=== PATIENT | female | born 1960 | race Caucasian/White ===

== ENCOUNTER 2022-06-08 08:00 | Outpatient (CLI) | payer OTHER ==
--- NOTE | 2022-06-08 17:36 | XRAY Report ---
PROCEDURE: Ankle 3 View LT INDICATIONS: LEFT ANKLE PAIN TECHNIQUE: 3 views of the ankle were acquired. COMPARISON: X-ray ankle 05/23/2022 FINDINGS: Bones: Comminuted distal fibular fracture is present. There is stable appearance of the ankle mortise . Alignment is stable. No suspicious bony lesions. Soft tissues: No tibiotalar joint effusion. Achilles tendon appears normal. IMPRESSION: Stable alignment of comminuted distal fibular fracture. Reviewed by: Azucena Fox MD on 06/08/2022 5:35 PM PST Approved by: Azucena Fox MD on 06/08/2022 5:35 PM PST Station ID: [id number]
== END 2022-06-08 23:59 | disposition home or self-care (01) ==
LOC: DI.WOS 08:00
PROVIDERS: ATTEND Physician Assistant Surgical
DX: S82.832D Other fracture of upper and lower end of left fibula, subsequent encounter for closed fracture with routine healing (principal)

== ENCOUNTER 2023-08-17 11:22 | Outpatient (CLI) | payer OTHER ==
[2023-08-17 11:50] LABS: BILIRUBIN,URINE NEGATIVE (NEGATIVE); GLUCOSE, URINE (UA) NEGATIVE (NEGATIVE); KETONES,URINE (UA) NEGATIVE (NEGATIVE); LEUKOCYTE ESTERASE, URINE NEGATIVE (NEGATIVE); NITRITE,URINE POSITIVE (NEGATIVE); OCCULT BLOOD,URINE TRACE-INTA (NEGATIVE); PROTEIN,URINE NEGATIVE (NEGATIVE); UROBILINOGEN,URINE 0.2 (NORMAL) E.U./dL (NORMAL)
[2023-08-17 11:52] LABS: CLARITY,URINE SL. CLOUDY (CLEAR)
[2023-08-17 11:57] LABS: BACTERIA,URINE Moderate /HPF (None Seen); RBC,URINE 0-5 /HPF (0-5); SQUAMOUS EPITHELIAL CELL,UR MANY Squamous (<= Few); WBC,URINE 0-3 /HPF (0-5)
== END 2023-08-17 11:23 | disposition home or self-care (01) ==
LOC: LAB.WCP 11:22
PROVIDERS: ATTEND Physician Assistant
DX: R31.21 Asymptomatic microscopic hematuria (principal)
CPT/HCPCS: 81001; 87086

== ENCOUNTER 2023-08-31 07:48 | Outpatient (CLI) | payer OTHER ==
--- NOTE | 2023-08-31 16:06 | XRAY Report ---
PROCEDURE: Lumbar Spine 2-3V INDICATIONS: SCIATICA, LEFT TECHNIQUE: 2 views of the lumbar spine were acquired. COMPARISON: None. FINDINGS: Bones: 5 [id number] vertebrae are present. There is normal bony alignment. No vertebral body compression fractures. No suspicious bony lesions. Mild multilevel disc height loss and osteophytos is, worse at L5-S1. L4-L5 and L5-S1 facet arthropathy. Soft tissues: Overlying bowel gas pattern is normal. No suspicious soft tissue calcifications. Vas cular calcifications are present. IMPRESSION: No acute osseous abnormality. Multilevel degenerative disc disease and facet arthropathy, worse at L5 -S1. Reviewed by: Paula Quach MD, PhD on 08/31/2023 4:04 PM PDT Approved by: Paula Quach MD, PhD on 08/31/2023 4:04 PM PDT Station ID: [id number]
== END 2023-08-31 07:49 | disposition home or self-care (01) ==
LOC: DI.N 07:48
PROVIDERS: ATTEND Physician Assistant
DX: M47.816 Spondylosis without myelopathy or radiculopathy, lumbar region (principal); M47.817 Spondylosis without myelopathy or radiculopathy, lumbosacral region; M51.36 Other intervertebral disc degeneration, lumbar region; M51.37 Other intervertebral disc degeneration, lumbosacral region

== ENCOUNTER 2023-08-31 07:55 | Outpatient (CLI) | payer OTHER ==
[2023-08-31 12:32] LABS: BILIRUBIN,URINE NEGATIVE (NEGATIVE); GLUCOSE, URINE (UA) NEGATIVE (NEGATIVE); KETONES,URINE (UA) NEGATIVE (NEGATIVE); LEUKOCYTE ESTERASE, URINE NEGATIVE (NEGATIVE); NITRITE,URINE NEGATIVE (NEGATIVE); OCCULT BLOOD,URINE NEGATIVE (NEGATIVE); PH,URINE 5.5 PH (5.0-7.5); PROTEIN,URINE NEGATIVE (NEGATIVE); UROBILINOGEN,URINE 0.2 (NORMAL) E.U./dL (NORMAL)
[2023-08-31 12:37] LABS: BACTERIA,URINE Moderate /HPF (None Seen); CLARITY,URINE CLOUDY (CLEAR); RBC,URINE 0-5 /HPF (0-5); SQUAMOUS EPITHELIAL CELL,UR MOD Squamous (<= Few)
== END 2023-08-31 07:56 | disposition home or self-care (01) ==
LOC: LAB.N 07:55
PROVIDERS: ATTEND Physician Assistant
DX: R31.21 Asymptomatic microscopic hematuria (principal)
CPT/HCPCS: 81001; 87086

== ENCOUNTER 2024-01-10 10:12 | Day surgery (SDC) | payer OTHER ==
[2024-01-10] MEDS: LACTATED RINGERS 1,000 ML IV ONE (10:22)
--- NOTE | 2024-01-10 11:43 | ANESTHESIA ---
Pre-Anesthesia VS, & Labs - Diagnosis screening - Procedure colonoscopy Vital Signs: Temp Pulse Resp BP Pulse Ox O2 Flow Rate 36.3 C L 72 12 119/87 H 100 01/10/24 10:27 01/10/24 10:27 01/10/24 10:27 01/10/24 10:27 01/10/24 10:27 Height: 5 ft 2 in Weight (kg): 89.9 kg Body Mass Index: 36.2 BMI Classification: Obese - Is Patient ?: No Home Medications and Allergies Home Medications: Ambulatory Orders Anastrozole 1 mg PO DAILY 01/02/24 Calcium Carbonate/Vitamin D3 [Calcium 250-Vit D3 125 Tablet] 1 each PO DAILY 01/02/24 Esomeprazole Magnesium [Nexium 24Hr] 20 mg PO DAILY 01/02/24 Loratadine [Claritin] 10 mg PO DAILY 01/02/24 hydrOXYzine HCL [Hydroxyzine HCl] 25 mg PO QPM 01/02/24 Gabapentin [Neurontin] 300 mg PO DAILY 01/10/24 Anastrozole 1 mg PO DAILY 01/02/24 Calcium Carbonate/Vitamin D3 [Calcium 250-Vit D3 125 Tablet] 1 each PO DAILY 01/02/24 Esomeprazole Magnesium [Nexium 24Hr] 20 mg PO DAILY 01/02/24 Loratadine [Claritin] 10 mg PO DAILY 01/02/24 hydrOXYzine HCL [Hydroxyzine HCl] 25 mg PO QPM 01/02/24 Gabapentin [Neurontin] 300 mg PO DAILY 01/10/24 Allergies/Adverse Reactions: Allergies Allergy/AdvReac Type Severity Reaction Status Date / Time No Known Drug Allergies Allergy Verified 01/10/24 10:37 Anes History & Medical History - Anesthetic History Anesthesia Complications: reports: Post-Operative Nausea/Vomiting - Medical History Cardiovascular: reports: Hypertension Pulmonary: reports: None Gastrointestinal: reports: GERD, Other Urinary: reports: None Musculoskeletal: reports: Chronic back pain Endocrine/Autoimmune: reports: None Skin: reports: None Smoking Status: Former smoker Psychosocial: reports: Alcohol (3-4 times a week, one martini) History of Cancer?: Yes (breast lumpectomy) - Surgical History General: reports: Gastric surgery Gynecologic: reports: section, Tubal ligation, LEEP (Cervical surgery), Other Exam General: Alert, Oriented x3 Dental: WNL Mouth Opening: Greater than 4 Fingerbreadths Neck Mobility: Normal Mallampati classification: II Thyromental Distance: greater than 6 cm Respiratory: Lungs clear Cardiovascular: Regular rate Plan Anesthesia Type: Total IV Consent for Procedure(s) Verified and Reviewed: Yes Code Status: Attempt Resuscitation ASA classification: 2-Mild systemic disease Is this case an emergency?: No
[2024-01-10] MEDS ORDERED: PROPOFOL 500 MG/50 ML 500 MG/50 ML VIAL ONE (11:58)
[2024-01-10] MEDS ORDERED: MIDAZOLAM 2 MG/2 ML VIAL ONE (12:24)
[2024-01-10] MEDS ORDERED: LIDOCAINE-MPF 2% 5 ML VIAL ONE (12:24)
[2024-01-10] MEDS ORDERED: PROPOFOL 200 MG/20 ML VIAL IVP ONE ×2 (12:51→13:19)
[2024-01-10] MEDS: LACTATED RINGERS 100 ML IV ONE (13:27)
[2024-01-10 13:51] VITALS: BP 143/84; O2SAT 100
--- NOTE | 2024-01-10 14:13 | ANESTHESIA POST OP EVALUATION ---
Anesthesia Post Eval - Post Anesthesia Eval Vitals: Last Vital Signs Temp 36.0 C L 01/10/24 13:27 Pulse 75 01/10/24 13:45 Resp 18 01/10/24 13:45 BP 143/84 H 01/10/24 13:45 Pulse Ox 100 01/10/24 13:45 O2 Flow Rate CV Function Including HR & BP: Stable Pain Control: Satisfactory Nausea & Vomiting: Negative Mental Status: Baseline Respiratory Status: Airway Patent Hydration Status: Satisfactory Anesthesia Complications: None
== END 2024-01-10 10:13 | disposition home or self-care (01) ==
LOC: SDS 10:12
PROVIDERS: ATTEND Surgery
PROC: 0DBL8ZZ Excision of Transverse Colon, Via Natural or Artificial Opening Endoscopic (ICD-10-PCS; 2024-01-10)
PROC: 0DBN8ZZ Excision of Sigmoid Colon, Via Natural or Artificial Opening Endoscopic (ICD-10-PCS; 2024-01-10)
PROC: 0DBM8ZZ Excision of Descending Colon, Via Natural or Artificial Opening Endoscopic (ICD-10-PCS; principal; 2024-01-10 12:45)
DX: Z12.11 Encounter for screening for malignant neoplasm of colon (principal); D12.3 Benign neoplasm of transverse colon; D12.4 Benign neoplasm of descending colon; K63.5 Polyp of colon; K57.30 Diverticulosis of large intestine without perforation or abscess without bleeding; K21.9 Gastro-esophageal reflux disease without esophagitis; Z85.3 Personal history of malignant neoplasm of breast; E66.9 Obesity, unspecified; Z68.36 Body mass index [BMI] 36.0-36.9, adult; Z98.84 Bariatric surgery status; F17.200 Nicotine dependence, unspecified, uncomplicated
CPT/HCPCS: 45380; 45385; J7120